=== PATIENT | male | born 1980 | race Caucasian/White ===

== ENCOUNTER 2021-04-08 19:35 | Emergency (ER) | payer OTHER, SELFPAY ==
[2021-04-08 19:37] VITALS: BP 130/85; PULSE 114; RESP 16; TEMP 36.1; O2SAT 100; BMI 28.8
[2021-04-08 19:41] VITALS: BP 130/85; PULSE 114; RESP 16; TEMP 36.1; O2SAT 100
[2021-04-08] MEDS: Ibuprofen 600 MG Tablet PO (20:01)
[2021-04-08] MEDS: oxyCODONE 5 MG Tablet PO (20:01)
[2021-04-08] MEDS: diazePAM 5 MG Tablet PO (20:01)
--- NOTE | 2021-04-08 20:05 | CT_ITS ---
INDICATION: pain EXAMINATION: CT LUMBAR SPINE - CT Spine Lumbar W/O Contrast Injection TECHNIQUE: Helically acquired images were obtained of the lumbar spine. 2D reformats were reviewed. A radiation dose optimization technique was used for this scan. CT DI volume of 13.84 mg. DLP of 516.48 mGycentimeters IV Contrast dosage and agent: None. COMPARISON: None. FINDINGS: VERTEBRAE: No fracture or traumatic subluxation. No discrete lytic or blastic abnormality observed. Normal alignment. DISCS and SPINAL CANAL: Disc heights are preserved. No critical stenosis. Small focus of air within the right sacroiliac joint and a 5 mm, subcortical cyst right, subchondral superior SI joint with otherwise normal-appearing sacroiliac joints bilaterally; no evidence of degenerative joint disease or erosion. No airspace of sclerosis. VISUALIZED ABDOMEN: Visualized abdominal aorta is not dilated. There is no retroperitoneal adenopathy. Early atherosclerotic intimal calcifications abdominal aorta. CT/Spine Lumbar without Contrast IMPRESSION: No evidence of acute lumbar spinal fracture or spondylolisthesis. Electronically Signed: Michael Patrick DO at 20:50 EST ,
--- NOTE | 2021-04-08 20:05 | ED.VIS.BACK ---
HPI History of Present Illness Chief Complaint: Back Informant: patient Narrative Narrative: Worsening lower mid lumbar tenderness while getting out of car an hour ago. States spasm. No radicular pain. 3 days ago lifting a laundry basket felt mild pain. No history of back issues in the past. No loss of bowel or bladder control. No medications taken. He was brought in by ambulance. Takes no daily medicines. Denies any allergies. Denies gastric ulcers or kidney injury. Prior similar symptoms: No PFSH PFSH Medical History no medical history Home Medications diazepam 5 mg PO Q8 PRN #12 tab 04/08/21 [Rx Last Taken Unknown] ibuprofen 600 mg PO 4X/DAY PRN #20 tab 04/08/21 [Rx Last Taken Unknown] oxycodone-acetaminophen [Percocet] 1 tab PO Q6H PRN 3 Days #12 tab 04/08/21 [Rx Last Taken Unknown] Allergy/AdvReac Type Severity Reaction Status Date / Time No Known Allergies Allergy Verified 04/08/21 19:42 Surgical History no surgical history Social History Smoking Status: Current every day smoker tobacco type: cigarettes ROS ROS ED Constitutional Constitutional ED: Denies chills, fever(s) or sweats Eyes Eyes: Denies change in vision ENT ENT ED: Denies dysphagia or sore throat Cardiovascular Cardiovascular: Denies chest pain, leg edema, palpitations or racing heartbeat Respiratory/Chest Respiratory/Chest: Denies cough, dyspnea or dyspnea on exertion Gastrointestinal Gastrointestinal: Denies abdominal pain, diarrhea, nausea or vomiting Genitourinary Genitourinary ED: Denies dysuria, hematuria or urinary frequency Musculoskeletal Musculoskeletal: Reports back pain; Denies extremity pain or neck pain Integumentary Denies rash or wounds Neurologic Neurologic: Denies headache(s), paresthesias or weakness EXAM Physical Exam Const Vital Signs: 04/08/21 19:37 04/08/21 19:41 Temperature 97.0 F L 97.0 F L Temperature Source Temporal Temporal Pulse Rate 114 H 114 H Respiratory Rate 16 16 Blood Pressure 130/85 H 130/85 H Blood Pressure Mean 100 100 Pulse Ox 100 100 Oxygen Delivery Method Room Air Room Air Positive well nourished and well developed Constitutional Narrative: Laying flat on the bed with position of comfort. Nontoxic. General Appearance ED: well developed and NAD HEENT Reports moist mucous membranes normocephalic and atraumatic Eyes PERRL, EOMs intact bilaterally and conjunctivae normal General Eye ED: Yes normal appearance of both eyes Neck no lymphadenopathy and supple General: Negative for tenderness Chest Wall Chest: Negative for tenderness Resp normal respiratory effort and normal air movement Effort and Inspection: symmetric chest movement; Negative for respiratory distress Cardio regular rate, regular rhythm and no murmurs Peripheral Pulses: pulses 2+ throughout GI normal to inspection, nondistended, normoactive bowel sounds and non-tender Palpation: Negative for guarding or rebound tenderness present Back/Spine no CVA tenderness Back/Spine Narrative: Mid lumbar tenderness lower spine with paraspinal tightness. Straight leg test negative bilaterally. 2+ patellar reflex bilaterally. Extremity normal to inspection General Extremety ED: Negative for edema or tenderness General Extremity: Negative for edema Neuro oriented x3 and no sensory deficits noted Sensorium / Orientation: awake and alert Skin no rashes or lesions noted and no wounds MDM MDM MDM Narrative Medical decision making narrative: Patient with no radicular symptoms no cauda equina symptoms. Is uncomfortable with concerning back spasms. He did not want injections, oral ibuprofen Valium oxycodone was given. I did obtain a CT scan lumbar spine shows no acute process he was observed improving symptoms he was able to ambulate with no difficulties. Will treat symptomatically with medications. He is given follow-up as an outpatient. Discussed with patient no driving while using Valium or Percocet. Patient is being discharged under pandemic conditions under declared global, national and state disaster activation, with limited medical resources. Patient and community understands this. Results discussed in layman's terms to the patient satisfaction. All questions answered in layman's terms. Patient understands importance of follow-up care as directed. Patient has been instructed to return to the ED immediately if new symptoms, problems, or questions occur. We mutually agree with the plan of disposition. The patient understand that they may call or return with any questions or concerns at any time. Radiography Diagnostic Testing: Clinical Impression(s) from Imaging Studies Lumbar Spine CT 04/08/21 20:05 IMPRESSION: No evidence of acute lumbar spinal fracture or spondylolisthesis. Electronically Signed: Michael Patrick DO at 20:50 EST , Discharge Plan Triage Chief Complaint: Back ED Provider: Kwasi Aggarwal Dx/Rx/DC Orders Clinical Impression: Strain of lumbar paraspinal muscle Instructions: ED Back Spasm, No Trauma Prescriptions: New oxycodone-acetaminophen [Percocet] 5-325 mg tablet 1 tab PO Q6H PRN (Reason: pain) 3 Days Qty: 12 RF: 0 ibuprofen 600 MG tablet 600 mg PO 4X/DAY PRN (Reason: Pain Or Fever) Qty: 20 RF: 0 diazepam [diazepam] 5 MG tablet 5 mg PO Q8 PRN (Reason: Muscle Spasm) Qty: 12 RF: 0 Primary Care Provider: Care Physician,No Primary Referrals: Charline Stanton [NON-STAFF] - 5-7 Days Care Physician,No Primary [Primary Care Provider] - Disposition Disposition: Home, Self Care Discharge Date/Time: 04/08/21 22:31
== END 2021-04-08 22:31 | disposition home or self-care (01) ==
PROVIDERS: Emergency Provider Emergency Medicine; Visit Provider Emergency Medicine
DX: S39.012A Strain of muscle, fascia and tendon of lower back, initial encounter (principal); F17.210 Nicotine dependence, cigarettes, uncomplicated; X58.XXXA Exposure to other specified factors, initial encounter
CPT/HCPCS: 72131; 99285